=== PATIENT | male | born 1985 | race Caucasian/White ===

== ENCOUNTER 2018-04-13 13:21 | Emergency (ER) | payer OTHER ==
[2018-04-13] MEDS ORDERED: TORAdol 30 mg Injection IV ONE (14:08)
[2018-04-13] MEDS ORDERED: Sodium Chloride 0.9% 1000 ML 1,000 ML IV STA (14:08)
[2018-04-13] MEDS ORDERED: TORAdol 30 mg Injection ONE (14:24)
[2018-04-13] MEDS ORDERED: Sodium Chloride 0.9% 1000 ML 1,000 ML ONE (14:24)
[2018-04-13 14:28] LABS: Appearance CLEAR (CLEAR); Bilirubin NEGATIVE (NEGATIVE); Blood 250 Ery/ul (0-5); Glucose NEGATIVE (NEGATIVE); Ketones LARGE (NEGATIVE); Leukocyte Esterase NEGATIVE (NEGATIVE); Nitrite NEGATIVE (NEGATIVE); Protein,Urine Dip NEGATIVE (Negative); Urobilinogen NORMAL mg/dL (0-1)
[2018-04-13 14:29] LABS: Bacteria FEW /HPF (NEGATIVE); Epithelial Cells FEW /HPF (FEW); Mucus SLIGHT /HPF (NEGATIVE); RBC 0-2 /HPF (0-2); WBC 0-2 /HPF (0-5)
[2018-04-13 14:30] LABS: BASOPHIL % 0.2 % (0.0-0.4); Basophil (Absolute #) 0.02 (0-0.4); Eosinophil % 1.1 % (0.00-5.0); Eosinophil (Absolute #) 0.09 (0-0.5); Granulocyte Absolute (ANC) 5.39 (1.4-6.9); Granulocytes % 64.4 % (36.0-66.0); Hematocrit 43.7 % (42-50); Hemoglobin 16.7 gm/dl (12.5-18.0); Lymphocyte (Absolute #) 2.32 (1.0-4.6); Lymphocytes % 27.7 % (24.0-44.0); Mean Cell Volume 79.6 fl (78-100); Mean Corpuscular Hemoglobin 30.4 pg (26-32); Mean Corpuscular Hgb Concent. 38.2 g/dl (32-36); Mean Platelet Volume 9.5 fl (6-9.5); Monocyte (Absolute #) 0.55 (0.0-1.3); Monocytes % 6.6 % (0.0-12.0); Platelet Count 266 K/mm3 (150-450); Red Blood Count 5.49 M/mm3 (4.1-5.6); Red Cell Distribution Width 12.3 % (11.5-14.0); White Blood Count 8.4 K/mm3 (4.0-10.5)
[2018-04-13 14:40] LABS: BLOOD UREA NITROGEN 20 mg/dL (9-20); CHLORIDE 102 mmol/L (98-107); Calcium 9.4 mg/dL (8.4-10.2); Carbon Dioxide 27 mmol/L (22-30); Creatinine 1 1.12 mg/dL (0.66-1.25); Glucose 84 mg/dL (74-106); SODIUM 141 mmol/L (137-145)
[2018-04-13 14:58] LABS: Slide Review 1 YES
--- NOTE | 2018-04-13 15:51 | ERPHSYRPT ---
- History of Present Illness Time Seen by Provider: 04/13/18 13:36 Source: patient Exam Limitations: clinical condition Patient Subjective Stated Complaint: pt here for pressure flank area, and burning with urination, UTI a month ago.no fever Triage Nursing Assessment: pt alert, resp easy, skin w/d/p.abd soft, no discharge from penis Physician History: PATIENT COMPLAINS OF RIGHT FLANK PAIN PRESSURE DISCOMFORT X 2 DAYS ASSOCIATED WITH AN EPISODE OF DYSURIA. DENIES URINARY SYMPTOMS, FREQUENCY, HEMATURIA OR URGENCY. DENIES NAUSEA, EMESIS , DIARRHEA, FEVER CHILLS AND URETHRAL DISCHARGE. Timing/Duration: yesterday Activites at Onset: none Quality: burning Onset Location: right flank Severity of Pain-Max: mild Severity of Pain-Current: none Associated Symptoms: lower back pain Allergies/Adverse Reactions: No Known Drug Allergies Allergy (Unverified 04/13/18 14:14) Hx Influenza Vaccination/Date Given: No Hx Pneumococcal Vaccination/Date Given: No Immunizations Up to Date: Yes - Past Medical History Pertinent Past Medical History: No - Past Surgical History Past Surgical History: Yes Other Surgical History: feet surgery , - Social History Smoking Status: Never smoker Exposure to second hand smoke: No Drug Use: none Patient Lives Alone: No - Review of Systems Constitutional: No Fever, No Chills Eyes: No Symptoms Ears, Nose, & Throat: No Symptoms Respiratory: No Symptoms, No Cough, No Dyspnea Cardiac: No Symptoms, PND, No Chest Pain, No Edema, No Syncope Abdominal/Gastrointestinal: No Abdominal Pain, No Nausea, No Vomiting, No Diarrhea Genitourinary Symptoms: Flank Pain, No Dysuria Musculoskeletal: No Back Pain, No Neck Pain Skin: No Symptoms, No Rash Neurological: No Dizziness, No Focal Weakness, No Sensory Changes Psychological: No Symptoms Endocrine: No Symptoms All Other Systems: Reviewed and Negative - Nursing Vital Signs Nursing Vital Signs: Initial Vital Signs Temperature 97.8 F 04/13/18 13:25 Pulse Rate 95 H 04/13/18 13:25 Respiratory Rate 18 04/13/18 13:25 Blood Pressure 134/84 04/13/18 13:25 O2 Sat by Pulse Oximetry 96 04/13/18 13:25 Pain Scale Pain Intensity 0 - Physical Exam General Appearance: no apparent distress, alert Eye Exam: PERRL/EOMI Ears, Nose, Throat Exam: pharynx normal, moist mucous membranes Neck Exam: normal inspection, supple Respiratory Exam: normal breath sounds, lungs clear Cardiovascular Exam: regular rate/rhythm, normal heart sounds, No edema Gastrointestinal/Abdomen Exam: soft, normal bowel sounds, other (MINIMAL RIGHT LATERAL TENDERNESS, NO GUARDING), No tenderness Back Exam: normal inspection, No CVA tenderness Extremity Exam: normal inspection, normal range of motion, No pedal edema Neurologic Exam: alert, oriented x 3, cooperative, sensation nml, No motor deficits Skin Exam: normal color, warm, dry, No rash SpO2 Interpretation: normal SpO2: 98 Oxygen Delivery: Room Air - CT Exams Abdomen/Pelvis CT Interpretation: Tele-radiologist Report (NO OBSTRUCTIONS STONES, NO HYDRONEPHROSIS, BLADDER UNREMARKABLE NO STONES., NO FINDINGS TO SUGGEST APPENDICITIS) Ordered Tests: Active Orders 24 hr Category Date Time Status IV Insertion STAT Care 04/13/18 14:08 Active ABDOMEN AND PELVIS W/0 CONTRAS [CT] Stat Exams 04/13/18 14:09 Taken BMP Stat Lab 04/13/18 14:08 Completed CBC W DIFF Stat Lab 04/13/18 14:08 Completed UA W/ MICROSCOPIC Stat Lab 04/13/18 14:14 Completed Medication Summary Discontinued Medications Generic Name Dose Route Start Last Admin Trade Name Freq PRN Reason Stop Dose Admin Sodium Chloride 1,000 mls @ 999 mls/hr 04/13/18 14:08 04/13/18 14:28 Sodium Chloride 0.9% 1000 Ml IV 04/13/18 15:08 999 mls/hr .Q1H1M STA Administration Sodium Chloride Confirm 04/13/18 14:24 Sodium Chloride 0.9% 1000 Ml Administered 04/13/18 14:25 Dose 1,000 mls @ ud .ROUTE .STK-MED ONE Ketorolac Tromethamine 30 mg 04/13/18 14:08 04/13/18 14:27 Toradol 30 Mg Injection IV 04/13/18 14:09 30 mg STAT ONE Administration Ketorolac Tromethamine Confirm 04/13/18 14:24 Toradol 30 Mg Injection Administered 04/13/18 14:25 Dose 30 mg .ROUTE .STK-MED ONE Lab/Rad Data: Laboratory Result Diagrams 04/13/18 14:08 04/13/18 14:08 Laboratory Results 06/24/18 06/24/18 06/24/18 Range/Units 14:14 14:08 14:08 WBC 8.4 (4.0-10.5) K/mm3 RBC 5.49 (4.1-5.6) M/mm3 Hgb 16.7 (12.5-18.0) gm/dl Hct 43.7 (42-50) % MCV 79.6 (78-100) fl MCH 30.4 (26-32) pg MCHC 38.2 H (32-36) g/dl RDW 12.3 (11.5-14.0) % Plt Count 266 (150-450) K/mm3 MPV 9.5 (6-9.5) fl Gran % 64.4 (36.0-66.0) % Eos # (Auto) 0.09 (0-0.5) Absolute Lymphs (auto) 2.32 (1.0-4.6) Absolute Monos (auto) 0.55 (0.0-1.3) Lymphocytes % 27.7 (24.0-44.0) % Monocytes % 6.6 (0.0-12.0) % Eosinophils % 1.1 (0.00-5.0) % Basophils % 0.2 (0.0-0.4) % Absolute Granulocytes 5.39 (1.4-6.9) Basophils # 0.02 (0-0.4) Sodium 141 (137-145) mmol/L Potassium 4.0 (3.5-5.1) mmol/L Chloride 102 (98-107) mmol/L Carbon Dioxide 27 (22-30) mmol/L Anion Gap 16.0 H (5-15) MEQ/L BUN 20 (9-20) mg/dL Creatinine 1.12 (0.66-1.25) mg/dL Estimated GFR > 60.0 ML/MIN Glucose 84 (74-106) mg/dL Calcium 9.4 (8.4-10.2) mg/dL Ur Collection Type CLEAN CATCH Urine Color YELLOW (YELLOW) Urine Appearance CLEAR (CLEAR) Urine pH 5.0 (5-6) Ur Specific [place] 1.010 (1.005-1.025) Urine Protein NEGATIVE (Negative) Urine Ketones LARGE (NEGATIVE) Urine Blood 250 (0-5) Sin/ul Urine Nitrite NEGATIVE (NEGATIVE) Urine Bilirubin NEGATIVE (NEGATIVE) Urine Urobilinogen NORMAL (0-1) mg/dL Ur Leukocyte Esterase NEGATIVE (NEGATIVE) Urine Microscopic RBC 0-2 (0-2) /HPF Urine Microscopic WBC 0-2 (0-5) /HPF Ur Epithelial Cells FEW (FEW) /HPF Urine Bacteria FEW (NEGATIVE) /HPF Urine Mucus SLIGHT (NEGATIVE) /HPF Urine Trichomonas (NEGATIVE) /HPF Urine Yeast (NEGATIVE) /HPF Urine Culture Reflexed NO (NO) Urine Glucose NEGATIVE (NEGATIVE) mg/dL Slides for Path Review YES Specimen Received 04-13-18 1400 - Progress Progress: improved Progress Note: 04/13/18 15:54 IV NORMAL SALINE 1000ML/HR, TORADOL 30MG IV 04/13/18 16:14 URINE NEGATIVE FOR TRICH, YEAST, GC AND CHLAMYDIA Will see patient in: other Counseled pt/family regarding: lab results, diagnosis, need for follow-up - Departure Time of Disposition: 16:15 Departure Disposition: Home Clinical Impression: Microhematuria, RENAL COLIC Condition: Stable Critical Care Time: No Referrals: SAIDA BABB [Primary Care Provider] - Additional Instructions: STRAIN URINE FOR 72 HOURS. TORADOL 10MG EVERY 6 HOURS NEEDED FOR PAIN. CONSULT YOUR PRIMARY CARE PROVIDER FOR FOLLOWUP IN 1 WEEK, Prescriptions: Ketorolac Tromethamine [Toradol] 10 mg PO Q6H PRN PRN #20 tablet PRN Reason: Pain
[2018-04-13 16:35] VITALS: BP 104/64; PULSE 70; O2SAT 97
--- NOTE | 2018-04-13 21:36 | XRAY ---
Indication: Right flank pain. Multiple contiguous axial images obtained through the abdomen and pelvis without contrast as ordered. Comparison: None Lung bases are clear. Heart is not enlarged. Noncontrasted stomach and bowel loops appear nonobstructed. Mild diffuse scattered colonic fecal debris throughout. Also mild scattered colonic diverticulosis without diverticulitis. Normal appendix. No free fluid/air. Diffuse fatty replaced liver. A few calcified splenic granulomas. Remaining liver, gallbladder, pancreas, spleen, adrenal glands, kidneys, ureters, bladder, and aorta appear unremarkable for noncontrast exam. Osseous structures intact with lumbosacral degenerative disc disease. Impression: 1. Fatty liver and colonic diverticulosis. 2. Mild fecal stasis without obstruction. 3. No acute intra-abdominal/pelvic abnormalities on this noncontrast exam. Comment: Preliminary interpretation was made by C. No critical discrepancy. CTDI 20.40
== END 2018-04-13 16:35 | disposition home or self-care (01) ==
LOC: ED 13:21
DX: R31.29 Other microscopic hematuria (principal); N23 Unspecified renal colic; R30.0 Dysuria
CPT/HCPCS: 36415; 74176; 80048; 81000; 85025; 87491; 87591; 96360; 96361; 96374; 99284; J1885